=== PATIENT | male | born 1990 | race Caucasian/White ===

== ENCOUNTER 2020-08-23 16:55 | Emergency (ER) | payer SELFPAY ==
--- NOTE | 2020-08-23 17:34 | ER Document Report ---
ED Medical Screen (RME) - General Chief Complaint: Suicidal Ideation Stated Complaint: SUICIDAL IDEATION Time Seen by Provider: 08/23/20 17:20 - HPI Notes: 08/23/20 17:31 29-year-old male presents to emergency room today for feeling very depressed, he states that he has been thinking about killing himself, does not have a plan. States in the past he did jump off a bridge because he wanted to . Denies any ingestion of any harmful substances or medications, has not recently cut himself, however, he has cut himself in the past. Does not have any access to firearms. Patient states that he recently moved from [place] with his brother, who is in the [facility] a month ago. he does not have a doctor here to refill his Wellbutrin 150 mg daily and his Effexor 150 mg daily. Reports today he was kicked out of his brother's house because because the patient smokes marijuana in the house and the brother did not approve of this. Denies any homicidal ideation. Denies any fevers chills, chest pain, shortness of breath, abdominal pain, nausea, vomiting I have greeted and performed a rapid initial assessment of this patient. A comprehensive ED assessment and evaluation of the patient, analysis of test results and completion of the medical decision making process will be conducted by additional ED providers. PHYSICAL EXAMINATION: GENERAL: Well-appearing, well-nourished and in no acute distress. HEAD: Atraumatic, normocephalic. EYES: Pupils equal round extraocular movements intact, conjunctiva are normal. NECK: Normal range of motion CV: s1, s2 regular LUNGS: No respiratory distress Musculoskeletal: Normal range of motion NEUROLOGICAL: Normal speech, normal gait. SKIN: Warm, Dry, normal turgor, no rashes or lesions noted. The patient was evaluated during a global COVID-19 pandemic and that diagnosis was suspected/considered upon their initial presentation. Their evaluation, treatment and testing was consistent with current guidelines for patients who present with complaints or symptoms and may be related to COVID-19. 08/23/20 17:33 Physical Exam - Vital signs Vitals: Temp Pulse Resp BP Pulse Ox 99.1 F 98 16 124/75 99 08/23/20 17:13 08/23/20 17:13 08/23/20 17:13 08/23/20 17:13 08/23/20 17:13 Course - Vital Signs Vital signs: Temp Pulse Resp BP Pulse Ox 99.1 F 98 16 124/75 99 08/23/20 17:13 08/23/20 17:13 08/23/20 17:13 08/23/20 17:13 08/23/20 17:13
[2020-08-23 18:09] LABS: ABSOLUTE BASOPHILS # (AUTO) 0.1 10^3/uL (0.0-0.2); ABSOLUTE LYMPHOCYTES (AUTO) 1.9 10^3/uL (0.5-4.7); ABSOLUTE MONOCYTES (AUTO) 0.6 10^3/uL (0.1-1.4); ABSOLUTE NEUT (AUTO) 5.3 10^3/uL (1.7-8.2); BASOPHILS % (AUTO) 0.8 % (0-2); EOSINOPHILS % (AUTO) 0.2 % (0-6); HEMATOCRIT 46.4 % (37.9-51.0); HEMOGLOBIN 15.6 g/dL (13.5-17.0); LYMPHOCYTES % (AUTO) 24.4 % (13-45); MEAN CORPUSCULAR HEMOGLOBIN 28.8 pg (27.0-33.4); MEAN CORPUSCULAR HGB CONC 33.6 g/dL (32.0-36.0); MEAN CORPUSCULAR VOLUME 86 fl (80-97); MONOCYTES % (AUTO) 7.2 % (3-13); PLATELET COUNT 273 10^3/uL (150-450); RED BLOOD COUNT 5.41 10^6/uL (4.35-5.55); RED CELL DISTRIBUTION WIDTH 12.3 % (11.5-14.0); SEGMENTED NEUTROPHILS % (AUTO) 67.4 % (42-78); TOTAL CELLS COUNTED % (AUTO) 100 %; WHITE BLOOD COUNT 7.8 10^3/uL (4.0-10.5)
[2020-08-23 18:17] LABS: APPEARANCE,URINE CLEAR; BILIRUBIN,URINE NEGATIVE (NEGATIVE); COLOR,URINE YELLOW; GLUCOSE, URINE NEGATIVE (NEGATIVE); KETONES,URINE 20 mg/dL (NEGATIVE); LEUKOCYTE ESTERASE,URINE NEGATIVE (NEGATIVE); NITRITE,URINE NEGATIVE (NEGATIVE); PROTEIN,URINE 100 mg/dL (NEGATIVE); URINE SPECIFIC GRAVITY 1.035
[2020-08-23 18:26] LABS: ACETAMINOPHEN < 10 ug/mL (10-30); ALBUMIN 5.1 g/dL (3.5-5.0); ALCOHOL < 10 mg/dL (NONE DETECTED); ALKALINE PHOSPHATASE 55 U/L (38-126); ANION GAP 8 (5-19); ASPARTATE AMINO TRANSFERASE 61 U/L (17-59); BILIRUBIN,DIRECT 0.3 mg/dL (0.0-0.4); BILIRUBIN,TOTAL 1.6 mg/dL (0.2-1.3); BLOOD UREA NITROGEN 19 mg/dL (7-20); CARBON DIOXIDE 29 mmol/L (22-30); CHLORIDE 105 mmol/L (98-107); GLUCOSE 83 mg/dL (75-110); POTASSIUM 4.1 mmol/L (3.6-5.0); SALICYLATE < 1.0 mg/dL (2.0-20.0); TOTAL PROTEIN 8.6 g/dL (6.3-8.2)
[2020-08-23 18:34] LABS: URINE AMPHETAMINES SCREEN NEGATIVE; URINE BARBITURATES SCREEN NEGATIVE; URINE BENZODIAZEPINES SCREEN NEGATIVE; URINE COCAINE SCREEN NEGATIVE; URINE MARIJUANA (THC) SCREEN NEGATIVE; URINE METHADONE SCREEN NEGATIVE
--- NOTE | 2020-08-23 18:37 | ER Document Report ---
ED Psych Disorder / Suicide <SOLO ORTEGA - Last Filed: 08/23/20 19:03> <CHRISTY RAYMUNDO - Last Filed: 08/23/20 20:20> - General Chief Complaint: Suicidal Ideation Stated Complaint: SUICIDAL IDEATION Time Seen by Provider: 08/23/20 17:20 Primary Care Provider: [facility] [Outside] - Follow up as needed [facility] [Outside] - Follow up as needed [facility] [Outside] - Follow up as needed - HPI Notes: Patient is a 29-year-old male with a past medical history of depression who presents with suicidal ideations. Patient is living here with his brother who is active duty . Patient states that he has felt depressed for the past 3 days. He was kicked out of his brother's house for smoking marijuana. Patient is now afraid he is going to be homeless. He states that he does not have a plan currently to hurt himself. Patient has jumped off a bridge before when he wanted to commit suicide several years ago. He states he is on Wellbutrin and effexor but has not taken any today because he ran out. He denies any medical complaints. (CHRISTY RAYMUNDO) - Related Data Allergies/Adverse Reactions: No Known Allergies Allergy (Unverified 08/23/20 18:45) Past Medical History - General Information source: Patient - Social History Smoking Status: Unknown if Ever Smoked Drug Abuse: Heroin, Marijuana Lives with: Family Family History: Reviewed & Not Pertinent <CHRISTY RAYMUNDO - Last Filed: 08/23/20 20:20> Review of Systems <CHRISTY RAYMUNDO - Last Filed: 08/23/20 20:20> - Review of Systems Notes: CONSTITUTIONAL: No fever, fatigue or weight loss. SKIN: No rash. HENT: No congestion, ear pain, or sore throat. CARDIOVASCULAR: No chest pain or edema. RESPIRATORY: No cough, shortness of breath, congestion, or wheezing. GASTROINTESTINAL: No abdominal pain, nausea, vomiting, bloody stools or diarrhea. GENITOURINARY: No dysuria. MUSCULOSKELETAL: No joint pain or swelling. NEUROLOGIC: No headache, focal weakness or sensory changes. HEMATOLOGIC: No unusual bruising or bleeding. PSYCHIATRIC: Positive for depression. (CHRISTY RAYMUNDO) Physical Exam - General General appearance: Appears well In distress: None <CHRISTY RAYMUNDO - Last Filed: 08/23/20 20:20> - Vital signs Vitals: Temp Pulse Resp BP Pulse Ox 99.1 F 98 16 124/75 99 08/23/20 17:13 08/23/20 17:13 08/23/20 17:13 08/23/20 17:13 08/23/20 17:13 - General Notes: VITAL SIGNS: Within normal limits. GENERAL: No acute distress, non-toxic appearance. HEAD: Normal with no signs of head trauma. EYES: Conjunctiva normal, no discharge. EARS: Hearing grossly intact. NOSE: Normal. NECK: Normal range of motion, supple. CHEST: Clear breath sounds bilaterally. No wheezes, rales, or rhonchi. CARDIAC: Regular rate and rhythm. VASCULAR: No Edema. ABDOMEN: Normal and soft. MUSCULOSKELETAL: Good range of motion of all major joints. Extremities without clubbing, cyanosis or edema. NEUROLOGICAL: Alert and oriented x 3. No focal sensory or strength deficits. Speech normal. Follows commands appropriately. PSYCHIATRIC: Normal Affect, judgement and mood. SKIN: Normal appearance with no rashes or lesions. (CHRISTY RAYMUNDO) Course - Laboratory Results Result Diagrams: 08/23/20 17:45 08/23/20 17:45 <SOLO ORTEGA - Last Filed: 08/23/20 19:03> - Laboratory Results Result Diagrams: 08/23/20 17:45 08/23/20 17:45 Critical Laboratory Results Reviewed: No Critical Results - Radiology Results Critical Radiology Results Reviewed: No Critical Results <CHRISTY RAYMUNDO - Last Filed: 08/23/20 20:20> - Re-evaluation Re-evalutation: 08/23/20 18:37 Patient is medically cleared. Patient states he had suicidal thoughts but not currently. [facility] will evaluate him in the ER. Kyle from [facility] evaluated the patient. She states that he can be cleared for discharge from a mental health standpoint. She did give him multiple outpatient resources including homeless shelters and the information for [facility]. I reassessed the patient. He is resting comfortably. He is drinking soda. I discussed all this with the patient. He is agreeable to the plan. Patient did asked to have his Wellbutrin and Effexor refilled. Was given strict return precautions. 08/23/20 20:18 (CHRISTY RAYMUNDO) - Vital Signs Vital signs: Temp Pulse Resp BP Pulse Ox 97.9 F 99 17 143/86 H 100 08/23/20 20:01 08/23/20 20:01 08/23/20 20:01 08/23/20 20:01 08/23/20 20:01 - Laboratory Results Laboratory Results Interpreted: 08/23/20 08/23/20 17:45 17:45 Creatinine 1.29 H Total Bilirubin 1.6 H AST 61 H Total Protein 8.6 H Albumin 5.1 H Urine Protein 100 H Urine Ketones 20 H Urine Urobilinogen 2.0 H Salicylates < 1.0 L Acetaminophen < 10 L Discharge <SOLO ORTEGA - Last Filed: 08/23/20 19:03> <CHRISTY RAYMUNDO - Last Filed: 08/23/20 20:20> - Discharge Clinical Impression: Substance abuse, Passive suicidal ideations, Homelessness Condition: Stable Disposition: HOME, SELF-CARE Instructions: Suicidal Ideation (OM) Additional Instructions: You have been evaluated both medical and behavioral health teams and has been deemed appropriate for discharge. You have provided local resource list of area providers including mobile crisis contact information and [facility] contact information. You are highly encouraged to follow-up with [facility] for detox and substance abuse treatment. You have also been provided the local economic resource list which contains senior living information. NARCOTIC / OPIOD ABUSE: Narcotics and opiods are pain-relieving drugs that are often abused. They are addicting. Narcotics cause euphoria, but it often takes increasing amounts to "feel good" and avoid withdrawal symptoms. Overdose of narcotics causes small pupils, coma, and decreased breathing. It's a common cause of . Purity of street narcotics is unpredictable. Injection of narcotics is risky for abscesses, endocarditis (heart infection), pneumonia, and AIDS. Withdrawal from narcotics causes goose bumps, watery mouth, sweating, nasal congestion, muscle aches, abdominal cramps, vomiting, and diarrhea. There's often restlessness and confusion. Treatment programs are available, but you must make the decision to quit. Medication (such as clonidine) can be prescribed to control the symptoms of withdrawal. DEPRESSION: Your evaluation reveals that you have mental depression. While symptoms may be vague, they often include disturbance of sleep, fatigue, loss of appetite, and general loss of interest in life. While depression may be a side effect of drugs, or a reaction to a major change in your life, many cases have no known cause. If depression is acute, and related to a major loss in your life, you can expect it to clear completely with time. If you have been depressed a long time, are prone to repeated bouts of depression or low mood, or have been thinking of suicide, get help. Depression can be treated with anti-depressant medication and counselling. Long-term depression will often take a few weeks to clear, even with appropriate medication. Follow-up care is important. SUICIDAL IDEATION: Suicidal ideation is a common medical term for thoughts about suicide, which may be as detailed as a formulated plan, without the suicidal act itself. Although most people who undergo suicidal ideation do not commit suicide, some go on to make suicide attempts. The range of suicidal ideation varies greatly from fleeting to detailed planning, role playing, and unsuccessful attempts. While thoughts about suicide are common, most people do not carry out serious actions to commit suicide. Based upon your evaluation and discussion with you, we do not believe you are currently at risk to act upon your thoughts of suicide. You have agreed to return to the Emergency Department, at any time, if you feel inclined to act upon your suicidal thoughts. FOLLOW-UP CARE: If you have been referred to a physician for follow-up care, call the physicians office for an appointment as you were instructed or within the next two days. If you experience worsening or a significant change in your symptoms, notify the physician immediately or return to the Emergency Department at any time for re-evaluation. Prescriptions: Venlafaxine HCl [Effexor Xr] 150 mg PO DAILY #14 cap.er.24h Bupropion HCl [Wellbutrin 100 mg Tablet] 150 mg PO DAILY 14 Days #21 tablet Referrals: [facility] [Outside] - Follow up as needed [facility] [Outside] - Follow up as needed [facility] [Outside] - Follow up as needed
[2020-08-23 18:38] LABS: URINE PHENCYCLIDINE SCREEN UNCONFIRMED POSITIVE
--- NOTE | 2020-08-23 19:03 | PSYCHOLOGICAL NOTE ---
Psych Note - Psych Note Date seen by psych provider: 08/23/20 Time seen by psych provider: 18:30 Psych Note: Reason for Consult: Suicidal ideation Consent Permissions:none provided Patient arrived to [facility] ED via patient arrived to [facility] ED via POV after being kicked out of his brother's house because he was doing drugs. Patient reports passive suicidal ideation i.e. no plans means or intent in connection to his depression and now being homeless; "I am not trying to be homeless." Patient denies he has any other family members that can assist or take him in because "I have burned all the bridges" because of his drug use. Patient reports that he smoked marijuana however in the past he is used heroin. Patient denies using heroin within the last week. Clinician notes patient is positive for opiates and phencyclidine. When when discussing toxicology results patient confirms he smoked heroin however reports confusion in regards to the phencyclidine. Patient reports he thought that he smoked marijuana. Patient reports that he jumped off a bridge once a long time ago and that he is been on medications for depression since. He reports that he last took the medications yesterday because he ran out. Patient confirms he has insurance and could fill the prescriptions however is unsure if he has the co-pay or if he needs a co-pay. Patient is alert and orientated to person, place, time and circumstance. Mood and affect are blunted. Patient presents as if intoxicated. Clinician notes patient's pupils are not pinpointed. Patient is able to engage in organized and linear conversation. Patient discloses passive suicidal ideation i.e. no plans means or intent in connection to now being homeless. Patient denies homicidal ideation. Delusions are absent and behaviors congruent with an intact reality based presentation i.e. organized and linear thought process. Clinician notes there is some moments where patient pauses and demonstrates a delay in answering questions however does not need to be reminded of what was asked him. Insight, judgment, impulse control appear to be poor in connection to substance abuse. Clinical Presentation: Polysubstance abuse Homelessness Passive suicidal ideation i.e. no plans means or intent IVC Criteria per [place] GS 122C Dangerous to others Within the relevant past the individual No has inflicted or attempted to inflict or threatened to inflict serious bodily harm on another AND No that there is a reasonable probability that this conduct will be repeated as there is an absence of supervision or structure to prevent. OR No has acted in such a way as to create a substantial risk of serious bodily harm to another AND No that there is a reasonable probability that this conduct will be repeated as there is an absence of supervision or structure to prevent. OR No has engaged in extreme destruction of property AND NO that there is a reasonable probability that this conduct will be repeated as there is an absence of supervision or structure to prevent. Previous episodes of dangerousness to others, when applicable, may be considered when determining reasonable probability of future dangerous conduct. Clear, cogent, and convincing evidence that an individual has committed a homicide in the relevant past is prima facie evidence of dangerousness to others. Dangerous to self Within the relevant past the individual has done any of the following: acted in such a way as to show ALL of the following: No The individual would be unable without care, supervision, and the continued assistance of others not otherwise available, to exercise self- control, judgment, and discretion in the conduct of the individual's daily responsibilities and social relations or to satisfy the individual's need for nourishment, personal or medical care, assisted, or self-protection and safety. AND No There is a reasonable probability of the individual suffering serious physical debilitation within the near future unless adequate treatment is given. A showing of behavior that is grossly irrational, of actions that the individual is unable to control, of behavior that is grossly inappropriate to the situation, or of other evidence of severely impaired insight and judgment shall create a prima facie inference that the individual is unable to care for himself or herself. OR yes has attempted suicide or threatened suicide AND No that there is a reasonable probability of suicide unless adequate treatment is given as there is an absence of supervision or structure to prevent suicide of patient who has made an attempt, serious gesture or threat. Patient reports passive suicidal ideation i.e. no plans means or intent in connection to being kicked out of his brother's house. Patient was caught doing drugs in his brothers home and reports "I am not trying to be homeless." OR No has mutilated himself or herself or attempted to mutilate himself or herself AND No that there is a reasonable probability of serious self-mutilation unless adequate treatment is given as there is an absence of supervision or structure to prevent. NOTE: Previous episodes of dangerousness to self, when applicable, may be considered when determining reasonable probability of physical debilitation, suicide, or self-mutilation. Impression\\plan: Patient is cleared from acute psychiatric services. Patient reports passive suicidal ideation i.e. no plans means or intent in connection to being kicked out of his brother's house because he was doing drugs. Patient denies any other family will take him in due to "burning all his bridges" because of doing drugs. Patient reports that he is diagnosed with depression and on psychiatric medications but he ran out yesterday. He confirms that he has insurance and would be able to refill the medication if provided pres cription. Patient is encouraged to follow-up with [facility] for detox and substance abuse treatment. Patient has been provided local resources including [facility] contact information and mobile crisis contact information. Patient was also provided a economic resources which includes assisted contact information. Dr. Mark was consulted to care management of this patient; attending physicians in agreement with recommendations and disposition.
[2020-08-23 20:04] VITALS: BP 143/86
--- NOTE | 2020-08-23 21:55 | EKG REPORT ---
SEVERITY:- OTHERWISE NORMAL ECG - SINUS TACHYCARDIA : Confirmed by: Stuart Rodriguez MD 23-Aug-2020 21:54:37
== END 2020-08-23 20:01 | disposition home or self-care (01) ==
LOC: ER 16:55
DX: R45.851 Suicidal ideations (principal); F32.9 Major depressive disorder, single episode, unspecified; Z59.0 Homelessness; F19.10 Other psychoactive substance abuse, uncomplicated
CPT/HCPCS: 36415; 80053; 80307; 81001; 85025; 93005; 93010; 99285

== ENCOUNTER 2020-08-23 23:34 | Emergency (ER) | payer OTHER, MEDICAID ==
[2020-08-23 23:56] VITALS: BP 137/98
--- NOTE | 2020-08-24 01:09 | ER Document Report ---
ED Medical Screen (RME) - General Chief Complaint: Psych Problem Stated Complaint: PSYCH CONCERN, WANTS ADMITTED Time Seen by Provider: 08/24/20 01:02 Mode of Arrival: Ambulatory Information source: Patient - HPI Patient complains to provider of: Hearing voices, suicidal ideation Notes: 08/24/20 01:08 Patient here with complaints of hearing voices and suicidal ideation. The patient was just discharged within the last 24 hours for suicidal ideation. He states that he is hearing voices. When asked what they are saying, he says they are the same high. States that he now has a suicidal thoughts. When asked if he has a plan, he said when he would maybe use a gun. When asked if he has a gun, he states no. He denies any homicidal ideation. Exam: Nontoxic, no distress. Lungs clear and equal throughout. Heart sounds normal. Nonfocal neuro exam. An initial examination was made on the patient as part of the triage process, and it was determined a more comprehensive evaluation was necessary. Initial orders were placed and patient was transferred to another provider in the ED who assumed care and finished evaluation and plan. - Related Data Allergies/Adverse Reactions: amoxicillin Allergy (Verified 08/24/20 01:02) Home Medications: WELLBUTRIN. EFFEXOR Past Medical History - Social History Frequency of alcohol use: None Drug Abuse: None Physical Exam - Vital signs Vitals: Temp Pulse Resp BP Pulse Ox 98.3 F 90 19 137/98 H 99 08/23/20 23:55 08/23/20 23:55 08/23/20 23:55 08/23/20 23:55 08/23/20 23:55 Course - Vital Signs Vital signs: Temp Pulse Resp BP Pulse Ox 98.3 F 90 19 137/98 H 99 08/23/20 23:55 08/23/20 23:55 08/23/20 23:55 08/23/20 23:55 08/23/20 23:55
[2020-08-24 01:48] LABS: APPEARANCE,URINE CLEAR; BILIRUBIN,URINE NEGATIVE (NEGATIVE); GLUCOSE, URINE NEGATIVE (NEGATIVE); KETONES,URINE 80 mg/dL (NEGATIVE); LEUKOCYTE ESTERASE,URINE NEGATIVE (NEGATIVE); NITRITE,URINE NEGATIVE (NEGATIVE); PROTEIN,URINE 100 mg/dL (NEGATIVE); URINE SPECIFIC GRAVITY 1.035
[2020-08-24 01:50] LABS: COLOR,URINE DARK YELLOW
[2020-08-24 01:59] LABS: URINE AMPHETAMINES SCREEN NEGATIVE; URINE BARBITURATES SCREEN NEGATIVE; URINE BENZODIAZEPINES SCREEN NEGATIVE; URINE COCAINE SCREEN NEGATIVE; URINE METHADONE SCREEN NEGATIVE
[2020-08-24 02:01] LABS: URINE MARIJUANA (THC) SCREEN UNCONFIRMED POSITIVE; URINE PHENCYCLIDINE SCREEN UNCONFIRMED POSITIVE
--- NOTE | 2020-08-24 02:10 | ER Document Report ---
ED General - General Chief Complaint: Psych Problem Stated Complaint: PSYCH CONCERN, WANTS ADMITTED Time Seen by Provider: 08/24/20 01:02 Primary Care Provider: [facility] [Outside] - Follow up tomorrow [facility] [Outside] - Follow up tomorrow [facility] [Outside] - Follow up tomorrow Mode of Arrival: Ambulatory Notes: 39-year-old male history of depression presents with vague thoughts of not wanting to live anymore for the past several days. Patient came in with same thoughts yesterday and was seen by psych and was cleared and discharged with outpatient psychiatric follow-up and refills of his Wellbutrin and Effexor. Symptoms are precipitated by getting into argument with his brother and getting kicked out of the house for smoking marijuana in the house as well as running out of his medications. Patient denies having any real desire to act on these thoughts, just says that he feels sad. Patient has no plan. I spoke to patient about how he was seen by psych on his prior visit in house medications were refilled and he says that he did not pick them up, but says that he can pick them up. I asked him if he had called the psychiatrist to try to set up follow- up and he said he had not. He agreed that he was given good plan and he says yes that he thinks it is reasonable and that he will try to follow-up. Asked if he tried to call [place] [facility] and he said he had not he just came back to the emergency department. Patient has no other complaints at this time. - Related Data Allergies/Adverse Reactions: amoxicillin Allergy (Verified 08/24/20 01:02) Home Medications: WELLBUTRIN. EFFEXOR Past Medical History - General Information source: Patient - Social History Smoking Status: Never Smoker Frequency of alcohol use: None Drug Abuse: None Family History: Reviewed & Not Pertinent Review of Systems - Review of Systems Notes: REVIEW OF SYSTEMS: CONSTITUTIONAL : Denies fever, chills, or sweats. EENT: Denies recent cold/sinus symptoms, denies throat pain CARDIOVASCULAR: Denies chest pain, NAYELI RESPIRATORY: Denies cough, denies shortness of breath. GASTROINTESTINAL: Denies abdominal pain, nausea/vomiting. GENITOURINARY: Denies difficulty urinating, painful urination. MUSCULOSKELETAL: Denies neck pain, back pain. SKIN: Denies rash or skin lesions. HEMATOLOGIC : Denies easy bruising or bleeding. LYMPHATIC: Denies swollen, enlarged glands. NEUROLOGICAL: Denies headache, denies change in gait. PSYCHIATRIC: + anxiety or stress or depression. Physical Exam - Vital signs Vitals: Temp Pulse Resp BP Pulse Ox 98.3 F 90 19 137/98 H 99 08/23/20 23:55 08/23/20 23:55 08/23/20 23:55 08/23/20 23:55 08/23/20 23:55 - Notes Notes: PHYSICAL EXAMINATION: GENERAL: Well-appearing, well-nourished and in no acute distress. HEAD: Atraumatic, normocephalic. EYES: Pupils equal round and appropriate constriction, sclera anicteric, conjunctiva are normal. ENT: nares patent, moist mucous membranes, poor dentition NECK: Normal range of motion, supple without lymphadenopathy LUNGS: Normal respiratory rate and effort, speaking in full sentences HEART: Regular rate, no JVD, no lower extremity edema ABDOMEN: Soft, nontender, no guarding, no masses, no CVAT EXTREMITIES: Normal range of motion, no pitting or edema. No cyanosis. NEUROLOGICAL: Awake, alert, conversing appropriately, moves all extremities spontaneously. PSYCH: Normal mood, normal affect, no psychomotor agitation, shows fair insight SKIN: Warm, Dry, normal turgor, no rashes or lesions noted. Course - Vital Signs Vital signs: Temp Pulse Resp BP Pulse Ox 98.3 F 90 19 137/98 H 99 08/23/20 23:55 08/23/20 23:55 08/23/20 23:55 08/23/20 23:55 08/23/20 23:55 - Laboratory Results Laboratory Results Interpreted: 08/24/20 01:20 Urine Protein 100 H Urine Ketones 80 H Urine Urobilinogen 2.0 H Critical Laboratory Results Reviewed: No Critical Results - Radiology Results Critical Radiology Results Reviewed: No Critical Results Discharge - Discharge Clinical Impression: Depressed mood, Passive suicidal ideations, Substance abuse, Homelessness Disposition: HOME, SELF-CARE Additional Instructions: Your medications were refilled on your last visit yesterday, pick them up at the pharmacy. Contact the shelters on the list that I gave you to see if you can find accommodation there. Contact the psychiatrist whose information I gave you to make an appointment in the next few days. If your thoughts about suicide are getting worse, you have difficulty following up with a psychiatrist or getting into a [place] [facility] facility, you have thoughts of hurting someone else, you feel more confused and cannot do your normal daily activities, or you have any other worsening or alarming symptoms return to the emergency department immediately. You have been evaluated both medical and behavioral health teams and has been deemed appropriate for discharge. You have provided local resource list of area providers including mobile crisis contact information and [facility] contact information. You are highly encouraged to follow-up with [facility] for detox and substance abuse treatment. You have also been provided the local economic resource list which contains [place] [facility] information. NARCOTIC / OPIOD ABUSE: Narcotics and opiods are pain-relieving drugs that are often abused. They are addicting. Narcotics cause euphoria, but it often takes increasing amounts to "feel good" and avoid withdrawal symptoms. Overdose of narcotics causes small pupils, coma, and decreased breathing. It's a common cause of . Purity of street narcotics is unpredictable. Injection of narcotics is risky for abscesses, endocarditis (heart infection), pneumonia, and AIDS. Withdrawal from narcotics causes goose bumps, watery mouth, sweating, nasal congestion, muscle aches, abdominal cramps, vomiting, and diarrhea. There's often restlessness and confusion. Treatment programs are available, but you must make the decision to quit. Medication (such as clonidine) can be prescribed to control the symptoms of withdrawal. DEPRESSION: Your evaluation reveals that you have mental depression. While symptoms may be vague, they often include disturbance of sleep, fatigue, loss of appetite, and general loss of interest in life. While depression may be a side effect of drugs, or a reaction to a major change in your life, many cases have no known cause. If depression is acute, and related to a major loss in your life, you can expect it to clear completely with time. If you have been depressed a long time, are prone to repeated bouts of depression or low mood, or have been thinking of suicide, get help. Depression can be treated with anti-depressant medication and counselling. Long-term depression will often take a few weeks to clear, even with appropriate medication. Follow-up care is important. SUICIDAL IDEATION: Suicidal ideation is a common medical term for thoughts about suicide, which may be as detailed as a formulated plan, without the suicidal act itself. Although most people who undergo suicidal ideation do not commit suicide, some go on to make suicide attempts. The range of suicidal ideation varies greatly from fleeting to detailed planning, role playing, and unsuccessful attempts. While thoughts about suicide are common, most people do not carry out serious actions to commit suicide. Based upon your evaluation and discussion with you, we do not believe you are currently at risk to act upon your thoughts of suicide. You have agreed to return to the Emergency Department, at any time, if you feel inclined to act upon your suicidal thoughts. FOLLOW-UP CARE: If you have been referred to a physician for follow-up care, call the physicians office for an appointment as you were instructed or within the next two days. If you experience worsening or a significant change in your symptoms, notify the physician immediately or return to the Emergency Department at any time for re-evaluation. Referrals: [facility] [Outside] - Follow up tomorrow [facility] [Outside] - Follow up tomorrow [facility] [Outside] - Follow up tomorrow
--- NOTE | 2020-08-24 07:22 | EKG REPORT ---
SEVERITY:- NORMAL ECG - SINUS RHYTHM : Confirmed by: Stuart Rodriguez MD 24-Aug-2020 07:21:42
== END 2020-08-24 06:00 | disposition home or self-care (01) ==
LOC: ER 23:34
DX: R44.0 Auditory hallucinations (principal); R45.851 Suicidal ideations; F32.9 Major depressive disorder, single episode, unspecified; F19.10 Other psychoactive substance abuse, uncomplicated; Z59.0 Homelessness
CPT/HCPCS: 80307; 81001; 93005; 93010; 99285

== ENCOUNTER 2020-08-24 19:12 | Emergency (ER) | payer SELFPAY ==
--- NOTE | 2020-08-24 21:13 | ER Document Report ---
ED Substance Abuse / Acc. OD - General Chief Complaint: Altered Mental Status Stated Complaint: PSYCH Time Seen by Provider: 08/24/20 20:56 Notes: Patient is a 29-year-old male who comes emergency department for chief complaint of drug abuse, drug dependence, depression, suicidal ideations, and patient states he is requesting drug rehab. Patient admits to recently becoming homeless when his brother kicked him out of the house or using drugs, he admits to polysubstance abuse. He denies fever, vomiting, chest pain, generalized sick symptoms, COVID-19 exposure. He states he was seen here, prescribed medications, did not feel any medications, has not followed up. He does report previously attempting suicide but he denies having a plan. He denies homicidal ideations. - Related Data Allergies/Adverse Reactions: amoxicillin Allergy (Verified 08/24/20 01:02) Past Medical History - General Information source: Patient - Wounds - Social History Smoking Status: Never Smoker Frequency of alcohol use: None Drug Abuse: None Lives with: Family Family History: Reviewed & Not Pertinent Surgical Hx: Negative - Immunizations Immunizations up to date: Yes Hx Diphtheria, Pertussis, Tetanus Vaccination: Yes Review of Systems - Review of Systems Constitutional: No symptoms reported EENT: No symptoms reported Cardiovascular: No symptoms reported Respiratory: No symptoms reported Gastrointestinal: No symptoms reported Genitourinary: No symptoms reported Male Genitourinary: No symptoms reported Musculoskeletal: No symptoms reported Skin: No symptoms reported Hematologic/Lymphatic: No symptoms reported Neurological/Psychological: See HPI Physical Exam - Vital signs Vitals: Temp Pulse Resp BP Pulse Ox 98.6 F 120 H 17 137/78 H 100 08/24/20 19:16 08/24/20 19:16 08/24/20 19:16 08/24/20 19:16 08/24/20 19:16 - Notes Notes: GENERAL: Alert, interacts well. No acute distress. HEAD: Normocephalic, atraumatic. EYES: Pupils dilated but equal and reactive. EOMs intact. ENT: Oral mucosa dry, tongue midline. Oropharynx unremarkable. Airway patent. Nares patent, sinuses non-tender, ear canals unremarkable, TM's intact. NECK: Full range of motion. Supple. Trachea midline. No lymphadenopathy. LUNGS: Clear to auscultation bilaterally, no wheezes, rales, or rhonchi. No respiratory distress. Non-tender chest wall. HEART: Tachycardia, normal rhythm, no murmur ABDOMEN: Soft, non-tender. Non-distended. EXTREMITIES: Moves all 4 extremities spontaneously. No edema, normal radial and dorsalis pedis pulses bilaterally. No cyanosis. BACK: no cervical, thoracic, lumbar midline tenderness. No saddle anesthesia, normal distal neurovascular exam. Moves all extremities in full range of motion. NEUROLOGICAL: Alert and oriented x3. Normal speech. Cranial nerves II through XII grossly intact. Strength 5/5 in all extremities. PSYCH: Normal affect, normal mood. SKIN: Warm, dry, normal turgor. No rashes or lesions noted. Course - Re-evaluation Re-evalutation: 08/24/20 21:10 Patient has very dilated pupils, he is tachycardic, he is slurring his words, I asked him if he is "Robo-tripping". Patient asked if this means taking cough syrup because he had a lot of cough syrup today and he uses this to get high, confirming that he had his. Previous drug screen positive for PCP, but this was defaults positive from the dextromethorphan. Patient is stating he is depressed and intermittently suicidal but he states that he "would kill myself because I am scared to go to hell". He states that he has a drug dependence problem, he is scared to withdraw it, he admits to opiate abuse, he states that he needs drug rehab. This is his third visit in 2 days. Patient will be monitored until he is clinically sober for a proper disposition. Since patient is not actively suicidal and he is seeking assistance for drug dependence most likely we will attempt to get him into a drug/rehab program versus discharging home. Currently patient was staggering with ambulation and slurring his words, it is unsafe to discharge him at this time. Patient drank lots of PO fluids, was then given nausea medication, then patient fell asleep. He will be monitored until he is safe for disposition. 08/25/20 05:25 Patient has been reevaluated twice, sleeping but easily aroused. Still drowsy. Tachycardia resolved. CBC, chemistry, tox screen unremarkable. When patient is alert and ambulates without ataxia plan that I have discussed with patient will be for him to be placed in detox at [facility]. Patient has been evaluated here 3 times in the past day and has been cleared by psychiatric services are ready yesterday. Patient has not had a significant change since that time. Patient states appreciation and agreement. Patient discussed with Dr. Faith. 08/25/20 07:37 Patient much improved now. No longer slurring speech, pupils not dilated, calm and cooperative. Patient still states he wants to go into detox for drug dependence. Calling over to [facility] for a bed. Discussed with nursing staff. Patient states appreciation and agreement. - Vital Signs Vital signs: Temp Pulse Resp BP Pulse Ox 98.6 F 82 18 122/74 98 08/24/20 19:16 08/25/20 07:00 08/25/20 07:00 08/25/20 07:00 08/25/20 07:00 - Laboratory Results Result Diagrams: 08/24/20 20:23 08/24/20 20:23 Laboratory Results Interpreted: 08/24/20 20:23 BUN 21 H Total Bilirubin 1.6 H AST 63 H Total Protein 8.3 H Salicylates < 1.0 L Acetaminophen < 10 L Critical Laboratory Results Reviewed: No Critical Results - Radiology Results Critical Radiology Results Reviewed: No Critical Results - EKG Interpretation by Me Additional EKG results interpreted by me: EKG shows sinus rhythm at a rate of 75, QTC 447, normal axis, no T wave inversions or ST segment changes in consecutive leads Discharge - Discharge Clinical Impression: Substance abuse Condition: Stable Disposition: HOME, SELF-CARE Additional Instructions: Go directly to [facility] for detox for your substance dependence. Return to the emergency department for any concerning symptoms or something is not right.
[2020-08-24] MEDS ORDERED: PROMETHAZINE HCL INJ 25 MG/1 ML VIAL IM ONE (21:41)
[2020-08-24 21:44] LABS: ABSOLUTE LYMPHOCYTES (AUTO) 1.4 10^3/uL (0.5-4.7); ABSOLUTE MONOCYTES (AUTO) 0.5 10^3/uL (0.1-1.4); ABSOLUTE NEUT (AUTO) 4.9 10^3/uL (1.7-8.2); BASOPHILS % (AUTO) 0.4 % (0-2); EOSINOPHILS % (AUTO) 0.6 % (0-6); HEMATOCRIT 42.4 % (37.9-51.0); HEMOGLOBIN 14.7 g/dL (13.5-17.0); LYMPHOCYTES % (AUTO) 20.7 % (13-45); MEAN CORPUSCULAR HEMOGLOBIN 29.7 pg (27.0-33.4); MEAN CORPUSCULAR HGB CONC 34.6 g/dL (32.0-36.0); MEAN CORPUSCULAR VOLUME 86 fl (80-97); MONOCYTES % (AUTO) 7.2 % (3-13); PLATELET COUNT 268 10^3/uL (150-450); RED BLOOD COUNT 4.95 10^6/uL (4.35-5.55); RED CELL DISTRIBUTION WIDTH 12.4 % (11.5-14.0); SEGMENTED NEUTROPHILS % (AUTO) 71.1 % (42-78); TOTAL CELLS COUNTED % (AUTO) 100 %; WHITE BLOOD COUNT 6.9 10^3/uL (4.0-10.5)
[2020-08-24 21:45] LABS: ALBUMIN 4.9 g/dL (3.5-5.0); ALKALINE PHOSPHATASE 57 U/L (38-126); ANION GAP 8 (5-19); ASPARTATE AMINO TRANSFERASE 63 U/L (17-59); BILIRUBIN,DIRECT 0.3 mg/dL (0.0-0.4); BILIRUBIN,TOTAL 1.6 mg/dL (0.2-1.3); BLOOD UREA NITROGEN 21 mg/dL (7-20); CALCIUM 9.8 mg/dL (8.4-10.2); CARBON DIOXIDE 27 mmol/L (22-30); CHLORIDE 104 mmol/L (98-107); GLUCOSE 96 mg/dL (75-110); POTASSIUM 3.7 mmol/L (3.6-5.0); TOTAL PROTEIN 8.3 g/dL (6.3-8.2)
[2020-08-24 21:50] LABS: ACETAMINOPHEN < 10 ug/mL (10-30); ALCOHOL < 10 mg/dL (NONE DETECTED); SALICYLATE < 1.0 mg/dL (2.0-20.0)
[2020-08-25 07:06] VITALS: BP 122/74
--- NOTE | 2020-08-25 07:24 | EKG REPORT ---
SEVERITY:- NORMAL ECG - SINUS RHYTHM : Confirmed by: Stuart Rodriguez MD 25-Aug-2020 07:23:44
== END 2020-08-25 08:37 | disposition home or self-care (01) ==
LOC: ER 19:12
DX: F11.10 Opioid abuse, uncomplicated (principal); F19.20 Other psychoactive substance dependence, uncomplicated; Z59.0 Homelessness; Z88.0 Allergy status to penicillin
CPT/HCPCS: 93005; 99284; 96372; 36415; 80307 ×3; 85025; 80053; 93010; J2550

== ENCOUNTER 2020-08-26 15:28 | Emergency (ER) | payer OTHER ==
[2020-08-26] MEDS ORDERED: NORMAL SALINE 1000 ML 1,000 ML IV ONE (15:45)
[2020-08-26] MEDS ORDERED: ACTIVATED CHARCOAL 25 GM BOTTLE PO ONE (15:53)
--- NOTE | 2020-08-26 15:56 | ER Document Report ---
ED Medical Screen (RME) - General Chief Complaint: Overdose Stated Complaint: POSSIBLE OVERDOSE Time Seen by Provider: 08/26/20 15:41 Notes: Patient is a 29-year-old male who presents emergency department with a overdose of bupropion. Patient only had 2 pills left of his bupropion and his pill container. Was brought in via EMS and he is unable to give any meaningful history. Exam: Nystagmus noted to both eyes. I called poison control. Joie RN from Poison Control recommends a 24 hour automatic hold and activate charchoal since the patient has nystagmus and we do not know the last time he took medications. I have greeted and performed a rapid initial assessment of this patient. A comprehensive ED assessment and evaluation of the patient, analysis of test results and completion of medical decision making process will be conducted by an additional ED providers.. - Related Data Allergies/Adverse Reactions: amoxicillin Allergy (Verified 08/24/20 01:02) Past Medical History - Immunizations Immunizations up to date: Yes Hx Diphtheria, Pertussis, Tetanus Vaccination: Yes Physical Exam - Vital signs Vitals: Temp 99.5 F 08/26/20 15:47 Course - Vital Signs Vital signs: Temp Pulse Resp BP Pulse Ox 99.5 F 08/26/20 15:47
[2020-08-26 16:14] LABS: ABSOLUTE EOSINOPHILS # (AUTO) 0.1 10^3/uL (0.0-0.6); ABSOLUTE MONOCYTES (AUTO) 0.3 10^3/uL (0.1-1.4); ABSOLUTE NEUT (AUTO) 2.8 10^3/uL (1.7-8.2); BASOPHILS % (AUTO) 0.5 % (0-2); EOSINOPHILS % (AUTO) 2.6 % (0-6); HEMATOCRIT 43.4 % (37.9-51.0); HEMOGLOBIN 14.9 g/dL (13.5-17.0); LYMPHOCYTES % (AUTO) 23.7 % (13-45); MEAN CORPUSCULAR HEMOGLOBIN 29.4 pg (27.0-33.4); MEAN CORPUSCULAR HGB CONC 34.3 g/dL (32.0-36.0); MEAN CORPUSCULAR VOLUME 86 fl (80-97); MONOCYTES % (AUTO) 6.2 % (3-13); PLATELET COUNT 223 10^3/uL (150-450); RED BLOOD COUNT 5.07 10^6/uL (4.35-5.55); RED CELL DISTRIBUTION WIDTH 12.5 % (11.5-14.0); TOTAL CELLS COUNTED % (AUTO) 100 %; WHITE BLOOD COUNT 4.2 10^3/uL (4.0-10.5)
[2020-08-26 16:30] LABS: ALBUMIN 4.7 g/dL (3.5-5.0); ALKALINE PHOSPHATASE 51 U/L (38-126); ANION GAP 7 (5-19); ASPARTATE AMINO TRANSFERASE 66 U/L (17-59); BILIRUBIN,DIRECT 0.3 mg/dL (0.0-0.4); BILIRUBIN,TOTAL 0.9 mg/dL (0.2-1.3); BLOOD UREA NITROGEN 15 mg/dL (7-20); CALCIUM 9.4 mg/dL (8.4-10.2); CARBON DIOXIDE 28 mmol/L (22-30); CHLORIDE 107 mmol/L (98-107); GLUCOSE 94 mg/dL (75-110); TOTAL PROTEIN 7.8 g/dL (6.3-8.2)
[2020-08-26 16:34] LABS: ACETAMINOPHEN < 10 ug/mL (10-30); ALCOHOL < 10 mg/dL (NONE DETECTED); SALICYLATE < 1.0 mg/dL (2.0-20.0)
--- NOTE | 2020-08-26 17:13 | ER Document Report ---
ED Psych Disorder / Suicide <EVERETT CARLSON - Last Filed: 08/26/20 19:39> <AYE PEREZ - Last Filed: 08/27/20 06:50> <JOSEPH VELAZQUEZ - Last Filed: 08/27/20 14:17> <ZARIA HINOJOSA Bakari - Last Filed: 08/27/20 14:36> - General Chief Complaint: Overdose Stated Complaint: POSSIBLE OVERDOSE Time Seen by Provider: 08/26/20 15:41 Primary Care Provider: [facility] [Outside] - Follow up as needed [facility] [Outside] - Follow up as needed TUSHAR STONER MD [ACTIVE STAFF] - Follow up as needed Notes: CHIEF COMPLAINT: Possible overdose altered mental status HPI: 29-year-old male with prior history of overdoses of opiates, marijuana, cough syrup brought in for evaluation of altered mentation. Patient has a bottle of bupropion that was filled 3 days ago and is almost empty. There were only 21 tablets in the bottle initially. Patient does indicate that he took triple C today. Unable to quantify how much he took or if he took any other medications. ROS: See HPI -limited by altered mentation MEDICATIONS: I agree with the patient medications as charted by the RN. ALLERGIES: I agree with the allergies as charted by the RN. PAST MEDICAL HISTORY/PAST SURGICAL HISTORY: Reviewed and agree as charted by RN. SOCIAL HISTORY: Reviewed and agree as charted by RN. FAMILY HISTORY: No significant familial comorbid conditions directly related to patient complaint EXAM: Reviewed vital signs as charted by RN. CONSTITUTIONAL: Alert and oriented and responds appropriately to questions. Well-appearing; well-nourished HEAD: Normocephalic; atraumatic EYES: PERRL; Conjunctivae clear, sclerae non-icteric, positive nystagmus ENT: normal nose; no rhinorrhea; moist mucous membranes; pharynx without lesions noted, no uvula edema or deviation, no tonsillar hypertrophy, phonation normal NECK: Supple without meningismus; non-tender; no cervical lymphadenopathy, no masses CARD: RRR; no murmurs, no clicks, no rubs, no gallops; symmetric distal pulses RESP: Normal chest excursion without splinting or tachypnea; breath sounds clear and equal bilaterally; no wheezes, no rhonchi, no rales, pulse oximetry ABD/GI: Normal bowel sounds; non-distended; soft, non-tender, no rebound, no gu arding; no palpable organomegaly or masses. BACK: The back appears normal and is non-tender to palpation, there is no CVA tenderness EXT: Normal ROM in all joints; non-tender to palpation; no cyanosis, no effusions, no edema SKIN: Normal color for age and race; warm; dry; good turgor; no acute lesions noted NEURO: Moves all extremities equally; Motor and sensory function intact PSYCH: The patient's mood and manner are altered. Patient is responsive to voice, is able to stand with assistance at the bedside. Grooming and personal hygiene are appropriate. MDM: 29-year-old male who indicates that he took triple C today, may have also overdosed on bupropion. Initial orders by triage process have added seizure precautions. Patient is alert although confused. He is on the monitor [place] per poison control recommendation. (EVERETT CARLSON) - Related Data Allergies/Adverse Reactions: amoxicillin Allergy (Verified 08/24/20 01:02) Past Medical History - Social History Smoking Status: Unknown if Ever Smoked Family History: Reviewed & Not Pertinent - Immunizations Immunizations up to date: Yes Hx Diphtheria, Pertussis, Tetanus Vaccination: Yes <EVERETT CARLSON - Last Filed: 08/26/20 19:39> Physical Exam - Vital signs Vitals: Temp 99.5 F 08/26/20 15:47 Course - Laboratory Results Result Diagrams: 08/26/20 15:55 08/26/20 15:55 <EVERETT CARLSON - Last Filed: 08/26/20 19:39> - Laboratory Results Result Diagrams: 08/26/20 15:55 08/26/20 15:55 <AYE PEREZ - Last Filed: 08/27/20 06:50> - Laboratory Results Result Diagrams: 08/26/20 15:55 08/26/20 15:55 <JOSEPH VELAZQUEZ - Last Filed: 08/27/20 14:17> - Laboratory Results Result Diagrams: 08/26/20 15:55 08/26/20 15:55 Critical Laboratory Results Reviewed: No Critical Results - Radiology Results Critical Radiology Results Reviewed: No Critical Results <ZARIA HINOJOSA - Last Filed: 08/27/20 14:36> - Re-evaluation Re-evalutation: 08/26/20 19:39 Patient is more alert at this time he is more responsive. He states he did take a handful of the bupropion with the triple C in an effort to get high not in an effort to harm himself. He is IVC it at this time. He will be held pending further reassessment by the psychiatric team tomorrow morning. (EVERETT CARLSON) 08/27/20 06:51 At 2216 last night patient became very agitated aggravated yelling and unruly. He was stating he was going to fight whoever was calling him a weirdo. No one was near him at the time. After patient was redirected multiple times nursing asked for a dose of Ativan to help him calm down. Patient was given 1 mg of Ativan IV. Patient was able to calm down and at that time he stated he was not able to urinate he stated he had been trying to urinate in the urinal and was having a hard time. He asked for a catheter at that time. A Tellez catheter was placed. 1400 mL was returned and then another 800 by the end of the shift. Tellez catheter is still in place until patient is reassessed after his next EKG. Has been in sinus rhythm throughout the night. (AYE PEREZ) Patient's vital signs and previous labs, diagnostic images reviewed. Reviewed mental health notes, nurse's notes and previous providers notes. VSS. Pt is in no distress at this time. Denies any SI or HI. EKG negative for STEMI, no ST segment elevation. Heart rate 74, QT 392. P axis 29, QRS axis 59, TX 55. Interpreted by ER supervising physician. Tellez catheter was removed 8:00 this morning, patient urinated without any issues after Tellez was taken out. General: A&Ox3. Answers questions appropriately. Heart: RRR Lungs: CTAB Psych: Flat affect A/P: Continue monitoring and rec's per MH. Normal diet plan: discharge to [facility] for rehab 08/27/20 14:22 (ZARIA HINOJOSA) - Vital Signs Vital signs: Temp Pulse Resp BP Pulse Ox 98.2 F 98 18 148/89 H 100 08/27/20 13:00 08/26/20 15:52 08/27/20 12:00 08/27/20 12:01 08/27/20 12:00 - Laboratory Results Laboratory Results Interpreted: 08/26/20 08/26/20 15:55 17:57 AST 66 H Urine Protein 30 H Urine Ketones TRACE H Salicylates < 1.0 L Acetaminophen < 10 L Discharge <EVERETT CARLSON - Last Filed: 08/26/20 19:39> <AYE PEREZ - Last Filed: 08/27/20 06:50> <JOSEPH VELAZQUEZ - Last Filed: 08/27/20 14:17> <ZARIA HINOJOSA - Last Filed: 08/27/20 14:36> - Discharge Clinical Impression: Substance abuse Condition: Stable Disposition: HOME, SELF-CARE Additional Instructions: You have been evaluated by both medical and behavioral health teams for substance abuse. You have been deemed appropriate for discharge. While in the emergency department you received the following services/or had access to: Medical screening and assessment, nursing services, dietary services, pharmacological services, one-on-one counseling and/or psychotherapy, environmental services, and continuous observation by a patient public safety dispatcher. You should continue your home medications as prescribed and follow up with your medication provider. Altered Mental Status An altered mental status is a change in the normal functioning of the brain. This alteration of function can range from minor decreased brain function with some forgetfulness and confusion to complete loss of consciousness and coma. There are many possible causes of an altered mental status and include brain injuries such as trauma or strokes, problems with oxygen supply to the brain, fever and infections of the brain and/or elsewhere in the body, metabolic abnormalities such as low or high blood sugar, overdoses or excessive medication ingestion, and mental and psychiatric illnesses. Sometimes the altered mental status resolves and a definite cause is not determined. If a cause for your altered mental status was found, it has likely been corrected. Your evaluation has not shown any condition that requires that you be admitted to the hospital. It is believed that you are safe to leave and return to your home. If you have a return of your symptoms, you should return for re-evaluation. NARCOTIC / OPIOD ABUSE: Narcotics and opiods are pain-relieving drugs that are often abused. They are addicting. Narcotics cause euphoria, but it often takes increasing amounts to "feel good" and avoid withdrawal symptoms. Overdose of narcotics causes small pupils, coma, and decreased breathing. It's a common cause of . Purity of street narcotics is unpredictable. Injection of narcotics is risky for abscesses, endocarditis (heart infection), pneumonia, and AIDS. Withdrawal from narcotics causes goose bumps, watery mouth, sweating, nasal congestion, muscle aches, abdominal cramps, vomiting, and diarrhea. There's often restlessness and confusion. Treatment programs are available, but you must make the decision to quit. Medication (such as clonidine) can be prescribed to control the symptoms of withdrawal. OVERDOSE / INGESTION: You have taken more medication than you should have. After your evaluation and care, it is felt that your overdose is not likely to be harmful or of any significant consequences to you and you are being discharged. In the future, you should be careful not to take more medications than what is prescribed for you. Although your overdose does not seem to be of any danger to you at this time, if you develop any unusual or unexpected symptoms after your discharge, you should return to the Emergency Department immediately for re-evaluation. Follow up care: You are currently not involved in outpatient services, but are highly recommended to begin outpatient services. You are involved in medication management with your provider in [place], but have bene given resources to transfer to a provider in the local area. You have been given a [facility] outpatient referral list to include phone numbers for [facility] and [facility] mobile crisis. You were also given information for detox and substance abuse resources and online NA meeting information. If you experience worsening or a significant change in your symptoms, notify the physician immediately, utilize mobile crisis, or return to the Emergency Department at any time for re-evaluation. Today, you have an appointment at 1530 at [facility] for an intake assessment. You have agreed to go to [facility], voluntarily, in order to seek assistance with substance abuse. Your mother has been contacted, with your verbal consent, and will be at the ED by 1515 in order to take you to [facility]. You are highly recommended to abstain from substance abuse as your behaviors can be dangerous (i.e. being found in the road unaware of what is going on). You are also highly recommended to show up to [facility] at 1515 in order to follow through with your next step towards sobriety. In addition, a referral for [facility] has been made for you as well. Dr. Mark was consulted to care management of this patient; attending physicians in agreement with recommendations and disposition. Referrals: TUSHAR STONER MD [ACTIVE STAFF] - Follow up as needed [facility] [Outside] - Follow up as needed [facility] [Outside] - Follow up as needed
--- NOTE | 2020-08-26 17:46 | PSYCHOLOGICAL NOTE ---
Psych Note - Psych Note Date seen by psych provider: 08/26/20 Time seen by psych provider: 16:02 Psych Note: Reason for Consult: possible overdose [id number] Patient is a 29 year old male who presented to the [facility] ED today via EMS, petitioned for IVC. Patient denies current suicidal and homicidal ideation, plan, and intent. Patient cannot recall events leading to hospitalization or how he arrived at the ED. He is a poor historian and is currently under the influence of substances. Patient cannot form sentences at this time. Patient cannot engage appropriately. Patient was not alert and oriented to self, person, place, time or situation. Mood was lethargic with congruent affect. He denies current suicidal and homicidal ideation, plan, and intent, however he is under the influence of substances. Patient engages inappropriately. Clinical Presentation: substance use; intoxication Impression\plan: Patient is recommended for continued overnight mental health observation. At this time, it is unclear if patient meets criteria for IVC as he is intoxicated and unable to participate in evaluation. Patient will be re-evaluated in the morning when he is no longer under the influence of substances. Dr. Mark was consulted to care management of this patient; attending physicians in agreement with recommendations and disposition.
[2020-08-26 18:21] LABS: APPEARANCE,URINE CLEAR; BILIRUBIN,URINE NEGATIVE (NEGATIVE); COLOR,URINE YELLOW; GLUCOSE, URINE NEGATIVE (NEGATIVE); KETONES,URINE TRACE mg/dL (NEGATIVE); LEUKOCYTE ESTERASE,URINE NEGATIVE (NEGATIVE); NITRITE,URINE NEGATIVE (NEGATIVE); PROTEIN,URINE 30 mg/dL (NEGATIVE); URINE SPECIFIC GRAVITY 1.024; UROBILINOGEN,URINE NEGATIVE mg/dL (<2.0)
[2020-08-26 18:38] LABS: URINE AMPHETAMINES SCREEN NEGATIVE; URINE BARBITURATES SCREEN NEGATIVE; URINE BENZODIAZEPINES SCREEN NEGATIVE; URINE COCAINE SCREEN NEGATIVE; URINE METHADONE SCREEN NEGATIVE
[2020-08-26 18:40] LABS: URINE MARIJUANA (THC) SCREEN UNCONFIRMED POSITIVE; URINE PHENCYCLIDINE SCREEN UNCONFIRMED POSITIVE
--- NOTE | 2020-08-26 18:56 | EKG REPORT ---
SEVERITY:- NORMAL ECG - SINUS RHYTHM : Confirmed by: Stuart Rodriguez MD 26-Aug-2020 18:55:53
[2020-08-26] MEDS ORDERED: LORAZEPAM INJ 2 MG/1 ML VIAL IV ONE (22:15)
--- NOTE | 2020-08-27 00:22 | EKG REPORT ---
SEVERITY:- OTHERWISE NORMAL ECG - SINUS TACHYCARDIA : Confirmed by: Stuart Rodriguez MD 27-Aug-2020 00:22:23
--- NOTE | 2020-08-27 09:02 | EKG REPORT ---
SEVERITY:- NORMAL ECG - SINUS RHYTHM : Confirmed by: Stuart Rodriguez MD 27-Aug-2020 09:01:41
[2020-08-27 15:07] VITALS: BP 148/88
--- NOTE | 2020-08-27 20:20 | PSYCHOLOGICAL NOTE ---
Psych Note - Psych Note Date seen by psych provider: 08/27/20 Time seen by psych provider: 10:27 Psych Note: Reason for Consult: possible overdose [id number] Consent Permissions: Ekaterina gaviria, Patient is a 29 year old male who presented to the [facility] ED yesterday via EMS, petitioned for IVC. Patient denies suicidal and homicidal ideation, plan, and intent. He states, I took a bunch of medicine again. He reports telling hospital staff that he was suicidal because he wanted a place to sleep. Patient states he took Triple Cs, heroine, and marijuana. Patient recently moved from [place] to [place] to live with his brother, however his brother no longer is allowing him to stay there due to his continued drug use. He reports using drugs for a couple of years. Patient reports he is interested in treatment at [facility], but prefers to leave today so that he is not holding up a bed in the ED. Clinician explored drug use with patient. He reports using for years, but states he is interested in getting help. Patient states he has a girlfriend back in [place] and minimizes drug use to her. He is able to acknowledge his use is dangerous and minimizes it to those he is closest to. He understands why his brother is not allowing him to live there and states his brother gave him more than enough chances. He states he has a friend he can stay with, however acknowledges his friend is a substance user as well. Checked in with patient later to assist to facilitate [place] voluntary placement. He reports wanting to get help to be a part of his baby cousins life. Collateral: [id number] Patient was on the phone with his mother and handed phone to clinician. Clinician inquired about current insurance. Mother provided [facility] insurance information and ID number. She stated patients insurance ends on 09.01.2020 and he has been in work getting state insurance with [place]. Reports they have been working with Azar Shook and they will call him Saturday to get the state insurance in place. Clinician informed mother of inquiring for insurance as many longer detox/ substance use facilities do require insurance. She was informed clinician would be calling [facility] to inquire about bed availability. Mother reports she is in town visiting. Clinician informed her of the visitor policy and mother states she may try and come later when patient is less intoxicated as it is difficult to see him this way. She notes flying back to [place] in the morning. 1224 Called mother. Inquired about her coming to take patient to [place] crisis center. Mother reports she is currently babysitting her other sons baby and needs to know what time he is going to [place] to see if she would be able to come. 1349 Called mother. She confirms being able to come to ED at 1515 to take patient to [place] crisis center. Patient has been informed. Patient was alert and oriented to self, person, place, time and situation. Mood was euthymic with congruent affect. He denies current suicidal and homicidal ideation, plan, and intent. Patient did not appear to be responding to internal stimuli as evidenced by fair eye contact and answering questions appropriately when addressed. Thought processes are linear and organized. Conversational s peech was within normal limits for rate, tone and prosody. Intellectual abilities are estimated to be average. Insight and judgment are fair as patient identifies he uses drugs and wants help and impulse control were fair as evidenced by continued drug use. Patient engages appropriately. He demonstrates future forward goal oriented thinking as he inquires about treatment for substance use. Clinical Presentation: substance abuse IVC Criteria per [place] 122C Dangerous to others Within the relevant past the individual No has inflicted or attempted to inflict or threatened to inflict serious bodily harm on another AND No that there is a reasonable probability that this conduct will be repeated. OR No has acted in such a way as to create a substantial risk of serious bodily harm to another AND No that there is a reasonable probability that this conduct will be repeated. OR No has engaged in extreme destruction of property AND NO that there is a reasonable probability that this conduct will be repeated. Previous episodes of dangerousness to others, when applicable, may be considered when determining reasonable probability of future dangerous conduct. Clear, cogent, and convincing evidence that an individual has committed a homicide in the relevant past is prima facie evidence of dangerousness to others. Dangerous to self Within the relevant past the individual has done any of the following: acted in such a way as to show ALL of the following: No The individual would be unable without care, supervision, and the continued assistance of others not otherwise available, to exercise self- control, judgment, and discretion in the conduct of the individual's daily responsibilities and social relations or to satisfy the individual's need for nourishment, personal or medical care, nursing home, or self-protection and safety. AND No There is a reasonable probability of the individual suffering serious physical debilitation within the near future unless adequate treatment is given. A showing of behavior that is grossly irrational, of actions that the individual is unable to control, of behavior that is grossly inappropriate to the situation, or of other evidence of severely impaired insight and judgment shall create a prima facie inference that the individual is unable to care for himself or herself. OR No has attempted suicide or threatened suicide AND No that there is a reasonable probability of suicide unless adequate treatment is given OR No has mutilated himself or herself or attempted to mutilate himself or herself AND No that there is a reasonable probability of serious self-mutilation unless adequate treatment is given. NOTE: Previous episodes of dangerousness to self, when applicable, may be considered when determining reasonable probability of physical debilitation, suicide, or self-mutilation. Impression\plan: Patient is cleared from psychiatric services. Patient is recommended to rescind IVC. After sobering up overnight, patient is able to engage in evaluation. He states he has been abusing drugs for several years, but denies wanting to or doing so with the intent to . Patient was seen in the ED on 08.23.2020 with substance abuse and passive suicidal ideations. At time of discharge, patient did not follow up with outside treatment. Patient did attempt to admit himself to [facility], voluntarily, however he reportedly left AMA after informing [facility] that he just wanted a place to sleep. He denies current suicidal ideation, plan, and intent. Patient has a chronic history of poly substance use and history of failure to follow up with outpatient treatment or detox facilities. Patient moved to [place] to live with his brother and has since been removed from the house due to his continued drug use. Patient is recommended to follow up with detox/ substance use treatment. He has been given community resources for mobile crisis, [facility], other detox facilities, outpatient facilities, homeless shelters and food garcia in the area. Today, he has made an appointment for himself at [facility] for 1529 for an intake assessment. Patient agrees to go to [facility], voluntarily, and states his reasoning is because he wants to be in his baby cousins life. Patients mother is in town from [place] and agrees to be at the hospital by 1515 [address] patient to [place] crisis center and be part of his discharge plan of care. Mother will also be given resources that patient is given in order to possibly assist him in the future with making ar rangements and follow up appointments. Mother notes patients [place] insurance expires on 09.01.2020, but they are in work with getting him [place] state insurance and she is going to call Saturday. In addition, a referral to community paramedics has been made. Patient was recommended to follow up with [facility] and if symptoms worsen or return to utilize mobile crisis or return to the ED if needed. Dr. Mark was consulted to care management of this patient; attending physicians in agreement with recommendations and disposition.
--- NOTE | 2020-08-27 22:40 | EKG REPORT ---
SEVERITY:- NORMAL ECG - SINUS RHYTHM : Confirmed by: Stuart Rodriguez MD 27-Aug-2020 22:39:21
== END 2020-08-27 15:08 | disposition home or self-care (01) ==
LOC: ER 15:28
DX: F19.10 Other psychoactive substance abuse, uncomplicated (principal); H55.00 Unspecified nystagmus; R39.89 Other symptoms and signs involving the genitourinary system; Z88.0 Allergy status to penicillin
CPT/HCPCS: 93005 ×2; 99285; 96361; 51702; 96374; 36415; 80307 ×4; 83735; 85025; 80053; 81001; 93010 ×2; J2060; J7030; J3490

== ENCOUNTER 2020-08-29 14:34 | Emergency (ER) | payer OTHER, MEDICAID ==
[2020-08-29 16:00] LABS: ALBUMIN 4.5 g/dL (3.5-5.0); ALKALINE PHOSPHATASE 50 U/L (38-126); ANION GAP 7 (5-19); ASPARTATE AMINO TRANSFERASE 64 U/L (17-59); BILIRUBIN,DIRECT 0.1 mg/dL (0.0-0.4); BILIRUBIN,TOTAL 1.3 mg/dL (0.2-1.3); BLOOD UREA NITROGEN 16 mg/dL (7-20); CALCIUM 9.4 mg/dL (8.4-10.2); CARBON DIOXIDE 29 mmol/L (22-30); CHLORIDE 103 mmol/L (98-107); GLUCOSE 89 mg/dL (75-110); POTASSIUM 4.3 mmol/L (3.6-5.0); TOTAL PROTEIN 7.6 g/dL (6.3-8.2)
[2020-08-29 16:02] LABS: ACETAMINOPHEN < 10 ug/mL (10-30); ALCOHOL < 10 mg/dL (NONE DETECTED); SALICYLATE < 1.0 mg/dL (2.0-20.0)
[2020-08-29 16:03] LABS: ABSOLUTE MONOCYTES (AUTO) 0.4 10^3/uL (0.1-1.4); ABSOLUTE NEUT (AUTO) 5.7 10^3/uL (1.7-8.2); BASOPHILS % (AUTO) 0.3 % (0-2); EOSINOPHILS % (AUTO) 0.2 % (0-6); HEMATOCRIT 41.5 % (37.9-51.0); HEMOGLOBIN 14.2 g/dL (13.5-17.0); LYMPHOCYTES % (AUTO) 13.7 % (13-45); MEAN CORPUSCULAR HEMOGLOBIN 29.3 pg (27.0-33.4); MEAN CORPUSCULAR HGB CONC 34.1 g/dL (32.0-36.0); MEAN CORPUSCULAR VOLUME 86 fl (80-97); MONOCYTES % (AUTO) 5.9 % (3-13); PLATELET COUNT 237 10^3/uL (150-450); RED BLOOD COUNT 4.83 10^6/uL (4.35-5.55); RED CELL DISTRIBUTION WIDTH 12.5 % (11.5-14.0); SEGMENTED NEUTROPHILS % (AUTO) 79.9 % (42-78); TOTAL CELLS COUNTED % (AUTO) 100 %; WHITE BLOOD COUNT 7.1 10^3/uL (4.0-10.5)
--- NOTE | 2020-08-29 16:54 | EKG REPORT ---
SEVERITY:- NORMAL ECG - SINUS RHYTHM : Confirmed by: Trae Harrison MD 29-Aug-2020 16:53:49
[2020-08-29] MEDS ORDERED: LIDOCAINE 1% INJ-PF (10 MG/ML) 30 ML SDV INJ ONE (17:34)
[2020-08-29] MEDS ORDERED: DIPH/PERTUSS(ACELL)/TETANUS VAC/PF 0.5 ML SYR (>=10YO) IM ONE (17:36)
--- NOTE | 2020-08-29 17:40 | ER Document Report ---
ED General - General Chief Complaint: Suicidal Ideation Stated Complaint: SUICIDAL IDEATION Time Seen by Provider: 08/29/20 15:49 - HPI Notes: Patient is a 29-year-old male who presents emergency department for evaluation of suicidal ideation. He states he took a paper box cutter to his arm in an attempt to kill himself. He is currently homeless. He states he came down to this area and was staying with his brother, but he is not with his brother because of his drug use. He states that he uses Coricidin to get high, denies use of any other illicit drugs. I asked him why he attempted to kill himself today, he states simply "I just did not feel like living anymore." He denies any visual or auditory hallucinations at this time. - Related Data Allergies/Adverse Reactions: amoxicillin Allergy (Verified 08/29/20 14:47) Home Medications: List reviewed Past Medical History - General Information source: Patient - Social History Smoking Status: Current Some Day Smoker Drug Abuse: Other - Abuses cold medicine per his admission Family History: Reviewed & Not Pertinent Patient has homicidal ideation: No - Immunizations Immunizations up to date: Yes Hx Diphtheria, Pertussis, Tetanus Vaccination: Yes Review of Systems - Review of Systems Constitutional: No symptoms reported EENT: No symptoms reported Cardiovascular: No symptoms reported Respiratory: No symptoms reported Gastrointestinal: No symptoms reported Genitourinary: No symptoms reported Musculoskeletal: No symptoms reported Skin: See HPI Neurological/Psychological: See HPI Physical Exam - Vital signs Vitals: Temp Pulse Resp BP Pulse Ox 99.1 F 91 18 130/77 H 97 08/29/20 14:47 08/29/20 14:47 08/29/20 14:47 08/29/20 14:47 08/29/20 14:47 - Notes Notes: Is a 29-year-old male who appears his stated age, no acute distress. He has a very flat affect, slow to answer questions, but answers them appropriately. He does not appear to be reacting to any sort of internal stimuli. Vital signs reviewed, please refer to chart. Head is normocephalic, atraumatic. Pupils equal round, reactive to light. Neck is supple without meningismus. Heart is regular rate and rhythm. Lungs are clear to auscultation bilaterally. Abdomen is soft, nontender, normoactive bowel sounds throughout. Extremities without cyanosis, clubbing. Posterior calves are nontender. Peripheral pulses are equal. Skin is warm and dry. Examination of the right arm yields a gaping 2 cm long laceration in the right antecubital region with obvious skin avulsion, and a 6.5 cm gaping laceration to the right volar forearm. This violates into the subcutaneous tissue but I do not see any muscle or tendon laceration. He has multiple other per official linear lacerations, all consistent with self-harm. Patient has full range of motion of the right shoulder, elbow, wrist, fingers, thumb. Radial pulse 2+, sensation intact. Patient is awake, alert, neurological exam is nonfocal. Course - Re-evaluation Re-evalutation: 08/29/20 17:39 Patient presents emergency department for evaluation. Laboratory investigations were ordered as per protocol for psychiatric clearance. Still awaiting urinalysis and urine drug screen. Attention will be turned to the wounds which will require closure. Patient is currently stable, we will continue to monitor. 08/29/20 19:01 Still awaiting urinalysis and drug screen. Otherwise, attention was turned to the lacerations of the right forearm. The more proximal laceration appears to have a significant avulsion, so it was anesthetized and explored, but not sutured. The more distal laceration was sutured, please see procedure note. Patient tolerated this well and was neurovascularly intact following. Still awaiting urinalysis and urine drug screen, but I do not suspect a UTI in this patient. He is currently medically cleared. - Vital Signs Vital signs: Temp Pulse Resp BP Pulse Ox 99.0 F 78 22 H 138/72 H 100 08/29/20 18:52 08/29/20 18:52 08/29/20 18:52 08/29/20 18:52 08/29/20 18:52 - Laboratory Results Result Diagrams: 08/29/20 15:21 08/29/20 15:21 Laboratory Results Interpreted: 08/29/20 08/29/20 15:21 15:21 Seg Neutrophils % 79.9 H Creatinine 1.27 H AST 64 H Salicylates < 1.0 L Acetaminophen < 10 L Critical Laboratory Results Reviewed: No Critical Results - Radiology Results Critical Radiology Results Reviewed: No Critical Results - EKG Interpretation by Me Additional EKG results interpreted by me: 01/25/21 17:40 Sinus mechanism with a rate of 74 bpm. Normal axis and intervals. No acute ST changes concerning for ischemia or infarction. Procedures - Laceration/Wound Repair Right Volar Arm Wound length (cm): 6.5 Wound's Depth, Shape: Superficial, Linear Laceration pre-procedure: Sterile PPE donned, Shur-Clens applied Anesthetic type: 1% Lidocaine Volume Anesthetic (mLs): 7 Wound explored: Clean Wound Repaired With: Sutures Suture Size/Type: 5:0, Ethilon Number of Sutures: 14 Layer Closure?: No Post-procedure wound care: Sterile dressing applied Post-procedure NV exam normal: Yes Complications: No Discharge - Discharge Clinical Impression: Suicidal ideation, Laceration of forearm, right, Self-harm Condition: Stable Disposition: OTHER Instructions: Antibiotic Ointment Protection ([facility]), Laceration Care ([facility]), Soap Cleansing ([facility]), Tetanus Immunization Given ([facility]) Additional Instructions: Keep wound clean with soap and water. Avoid submerging as discussed. Keep wound protected with antibiotic ointment, bandage. Have sutures removed in 10 to 12 days. If you develop fevers, vomiting, redness, drainage, increased pain, or any other new or concerning symptoms, please return immediately to the emergency department for evaluation.
--- NOTE | 2020-08-29 19:24 | PSYCHOLOGICAL NOTE ---
Psych Note - Psych Note Date seen by psych provider: 08/29/20 Time seen by psych provider: 16:35 Psych Note: Reason for Consult: suicidal ideations [id number] Consent Permissions: mother [phone] Patient is a 29 year old male who presented to the [facility] ED today via EMS, petitioned for IVC. He is currently under the influence, but states, I do not want to live anymore. I gave up on life. Patient cut his arm with a weigh box tender and needs stitches while in the ED. He states he did follow up with [facility] 2 days ago and does not know why he left. He states today he used Coricidin and has just been wandering around and has no place to live. Estefani omero has a history of depression and substance abuse. Patient has been seen in the ED 3 times this past week for passive SI and substance abuse. After his discharge on 08.27.2020, he was to follow up at [facility], voluntary. Patient did follow up at [facility], however checked himself out the next day. Patient has a chronic history of substance abuse and impulse control issues. Patient moved to [place] from [place] earlier this month and has been kicked out of his brothers house because of his drug use. Patient is homeless. He has gotten resources each time he came to the ED for detox and correction options, however continues to choose to use drugs and sleep on the streets. He has left detox treatment 2 times in 72 hours AMA and immediately begins using substances again. Collateral: [facility], continuity of care, per [place] GS 122C 55 Patient has been to [facility] 2 times in the past 72 hours. Jerzy states patient arrived to [facility] afternoon and left Saturday evening AMA. [facility] reports he arrived again on Saturday afternoon and discharged last night AMA. Jerzy reports patient attended every single group while in [facility], was working on journaling, and last night when requesting discharge, he was persistent on wanting to smoke a cigarette and going to the correction to sleep. He reported to [facility] that a correction had a bed and his COVID test and was waiting for him. [facility] did not have the means to confirm this, however patient denied SI/HI at time of discharge and was not under IVC. Patients demeanor was reported to be recovery focused while at [facility]. Patient was alert and oriented to self, person, place, time and situation. Mood was intoxicated with congruent affect. He reports current suicidal ideations and cut his arm, requiring multiple stitches. Patient denies homicidal ideation, plan, and intent. Patient did not appear to be responding to internal stimuli as evidenced by fair eye contact and answering questions appropriately when addressed. Thought processes are disorganized. Intellectual abilities are estimated to be average. Insight, judgment, and impulse control were poor as evidenced by leaving detox treatment AMA two times in 72 hours and continuing to misuse substances. Clinical Presentation: suicidal ideations, cutting; substance abuse IVC Criteria per [place] GS 122C Dangerous to others Within the relevant past the individual No has inflicted or attempted to inflict or threatened to inflict serious bodily harm on another AND No that there is a reasonable probability that this conduct will be repeated. OR No has acted in such a way as to create a substantial risk of serious bodily harm to another AND No that there is a reasonable probability that this conduct will be repeated. OR No has engaged in extreme destruction of property AND NO that there is a reasonable probability that this conduct will be repeated. Previous episodes of dangerousness to others, when applicable, may be considered when determining reasonable probability of future dangerous conduct. Clear, cogent, and convincing evidence that an individual has committed a homicide in the relevant past is prima facie evidence of dangerousness to others. Dangerous to self Within the relevant past the individual has done any of the following: acted in such a way as to show ALL of the following: No The individual would be unable without care, supervision, and the continued assistance of others not otherwise available, to exercise self- control, judgment, and discretion in the conduct of the individual's daily responsibilities and social relations or to satisfy the individual's need for nourishment, personal or medical care, correction, or self-protection and safety. AND No There is a reasonable probability of the individual suffering serious physical debilitation within the near future unless adequate treatment is given. A showing of behavior that is grossly irrational, of actions that the individual is unable to control, of behavior that is grossly inappropriate to the situation, or of other evidence of severely impaired insight and judgment shall create a prima facie inference that the individual is unable to care for himself or herself. OR Yes has attempted suicide or threatened suicide Patient cut his right arm, requiring stitches and expressed wanting to AND Yes that there is a reasonable probability of suicide unless adequate treatment is given Patient has been chronically abusing substances and while under the influence he makes SI, which has now increased to attempting to harm self via cutting. He fails to completely follow through with substance abuse treatment and continues to put himself in unsafe situations while under the influence OR No has mutilated himself or herself or attempted to mutilate himself or herself AND No that there is a reasonable probability of serious self-mutilation unless adequate treatment is given. NOTE: Previous episodes of dangerousness to self, when applicable, may be considered when determining reasonable probability of physical debilitation, suicide, or self-mutilation. Impression\plan: Patient is currently under full IVC and referral is being sent to inpatient psychiatric hospitals to assist patient with medication management in order to return to baseline. Dr. Mark was consulted to care management of this patient; attending physicians in agreement with recommendations and disposition.
[2020-08-30] MEDS ORDERED: NORMAL SALINE 1000 ML 1,000 ML IV ONE (06:45)
[2020-08-30 08:45] LABS: APPEARANCE,URINE SLIGHTLY-CLOUDY; BILIRUBIN,URINE NEGATIVE (NEGATIVE); COLOR,URINE AMBER; GLUCOSE, URINE NEGATIVE (NEGATIVE); KETONES,URINE 20 mg/dL (NEGATIVE); LEUKOCYTE ESTERASE,URINE SMALL (NEGATIVE); NITRITE,URINE POSITIVE (NEGATIVE); PROTEIN,URINE 30 mg/dL (NEGATIVE); URINE SPECIFIC GRAVITY 1.025; UROBILINOGEN,URINE NEGATIVE mg/dL (<2.0)
[2020-08-30 09:01] LABS: URINE AMPHETAMINES SCREEN NEGATIVE; URINE BARBITURATES SCREEN NEGATIVE; URINE BENZODIAZEPINES SCREEN NEGATIVE; URINE COCAINE SCREEN NEGATIVE; URINE METHADONE SCREEN NEGATIVE
[2020-08-30 09:05] LABS: URINE MARIJUANA (THC) SCREEN UNCONFIRMED POSITIVE; URINE PHENCYCLIDINE SCREEN UNCONFIRMED POSITIVE
[2020-08-30 10:29] VITALS: BP 107/55
== END 2020-08-30 11:44 | disposition other institution (70) ==
LOC: ER 14:34
DX: R45.851 Suicidal ideations (principal); S51.811A Laceration without foreign body of right forearm, initial encounter; X78.8XXA Intentional self-harm by other sharp object, initial encounter
CPT/HCPCS: 12002; 93005; 99285; 96360; 96361; 90471; 36415; 87086; 80307 ×4; 85025; 0241U; 80053; 81001; 90715; 93010; J3490; J7030; C9803